=== PATIENT | female | born 2000 | race Caucasian/White ===

== ENCOUNTER 2019-03-23 13:18 | Emergency (ER) | payer BC ==
--- NOTE | 2019-03-23 13:30 | ED ---
Throat Pain/Nasal Congestion - HPI Summary HPI Summary: Patient is a 18-year-old female who presents emergency department for increased throat pain. Patient states she was seen at [facility] yesterday and diagnosed with strep pharyngitis. She was started on penicillin. Patient states today pain has increased on her left side. Patient states she went to [facility] there were concerned she had an abscess and referred her to the ER. Patient notes she is drinking well with pain. Notes mild abdominal pain without vomiting or diarrhea. No past medical history. Symptoms are mild-to- moderate in severity. Swallowing and eating makes symptoms worse. Nothing makes symptoms better. - History of Current Complaint Chief Complaint: EDThroatPain Time Seen by Provider: 03/23/19 13:28 Hx Obtained From: Patient - Allergies/Home Medications Allergies/Adverse Reactions: Allergies Allergy/AdvReac Type Severity Reaction Status Date / Time No Known Allergies Allergy Verified 03/23/19 13:25 PMH/Surg Hx/FS Hx/Imm Hx Previously Healthy: Yes Infectious Disease History: No Infectious Disease History: Denies: Traveled Outside the [place] in Last 30 Days - Family History Known Family History: Positive: Non-Contributory - Social History Occupation: Student Lives: Dormitory/Roommates Review of Systems Constitutional: Negative Positive: Sore Throat Cardiovascular: Negative Respiratory: Negative Positive: Abdominal Pain. Negative: Vomiting, Diarrhea, Nausea Genitourinary: Negative Negative: dysuria Skin: Negative Neurological: Negative All Other Systems Reviewed And Are Negative: Yes Physical Exam Triage Information Reviewed: Yes Vital Signs On Initial Exam: Initial Vitals Temp Pulse Resp BP Pulse Ox 99.4 F 100 16 127/80 97 03/23/19 13:23 03/23/19 13:23 03/23/19 13:23 03/23/19 13:23 03/23/19 13:23 Vital Signs Reviewed: Yes Appearance: Positive: Well-Appearing - Pt. sitting in chair in NAD. Skin: Positive: Warm, Dry Head/Face: Positive: Normal Head/Face Inspection Eyes: Positive: Normal, EOMI, [place] ENT: Positive: TMs normal, Other - Oral pharynx injected with moderate bilateral tonsilar edema with excudate. Slightly more swelling on the left. Uvula is midline without deviation. Slight muffled voice. No trismus. Tolerating secretions. Neck: Positive: Supple, Enlarged Nodes @ - Bilateral cervical L>R.. Negative: Nuchal Rigidity Respiratory/Lung Sounds: Positive: Clear to Auscultation, Breath Sounds Present Cardiovascular: Positive: Normal, RRR Abdomen Description: Positive: Other: - Mild LUQ pain on palpation. Neurological: Positive: Normal, CN Intact II-III Psychiatric: Positive: Affect/Mood Appropriate Procedures - Sedation Patient Received Moderate/Deep Sedation with Procedure: No Diagnostics - Vital Signs Vital Signs Temp Pulse Resp BP Pulse Ox 03/23/19 13:23 99.4 F 100 16 127/80 97 - Laboratory Lab Statement: Any lab studies that have been ordered have been reviewed, and results considered in the medical decision making process. EENT Course/Dx - Course Course Of Treatment: Pt. with positive strep at [place] presenting for worsening pain. Well appearing on exam with stable VS. Pt. examined by Dr. Storm as well who is concerned for left early DOWEL POINTER. Case discussed with ENT, Dr. Quintanilla, and he recommends switching antibx to clindamycin and prednisone. He will see her in office on Monday for recheck. Pt. concerned about possible mono as well. Given abd. pain and lymphadenopathy, monospot ordered and is positive. Advised pt. to increase fluids. To return to ER if sxs change or worsen. Pt. understands and agrees with plan. - Differential Diagnoses Differential Diagnoses: Periodontic Abscess, Pharyngitis, Tonsilitis - Diagnoses Provider Diagnoses: Strep pharyngitis, Mononucleosis Discharge ED - Sign-Out/Discharge Documenting (check all that apply): Patient Departure - Discharge Plan Condition: Good Disposition: HOME Prescriptions: Clindamycin Cap(NF) [Clindamycin Cap 300 mg Cap(NF)] 300 mg PO Q6H 10 Days #40 cap predniSONE TAB* [Deltasone 20 MG TAB*] 40 mg PO DAILY #10 tab Patient Education Materials: Mononucleosis (ED), Peritonsillar Abscess (ED), Strep Throat (ED) Referrals: Darron Quintanilla MD [Medical Doctor] - [facility] - Anthony CHAHAL [Primary Care Provider] - Additional Instructions: Call Dr. Quintanilla's office Monday at 8:00am to schedule an for 03/25/19 Take clindamycin and prednisone at directed Stopo taking penicillin Tylenol for pain as directed Increase fluids No contact sports x 4 weeks Return to ER if symptoms change or worsen - Billing Disposition and Condition Condition: GOOD Disposition: Home - Attestation Statements Provider Attestation: I have seen the patient with the TALAT and agree with the plan and documentation below except as noted: 18-year-old female sent in by [facility] with conservative DOWEL POINTER, exam with possible early left sided DOWEL POINTER, given clindamycin and will follow up with ENT. Delmar Storm MD
[2019-03-23] MEDS ORDERED: Clindamycin CAP* 150 MG PO ONE (13:49)
[2019-03-23] MEDS ORDERED: predniSONE TAB* 20 MG PO ONE (13:49)
[2019-03-23 14:44] VITALS: BP 145/87
== END 2019-03-23 14:35 | disposition home or self-care (01) ==
LOC: ED 13:18
DX: J02.0 Streptococcal pharyngitis (principal); B27.90 Infectious mononucleosis, unspecified without complication
CPT/HCPCS: 36415; 86308; 99282; A9270-GY; J7512